=== PATIENT | female | born 1980 | race Two or more races ===

== ENCOUNTER 2024-12-24 08:31 | Emergency (ER) | payer MEDICAID ==
[~2024-12-24] VITALS: Ht 160 cm; Wt 77.0 kg
[2024-12-24 08:44] VITALS: O2SAT 98
[2024-12-24] MEDS: IBUPROFEN 600MG TABLET PO ONE (09:46)
[2024-12-24] MEDS: CYCLOBENZAPRINE 10MG TABLET PO ONE (09:47)
[2024-12-24] MEDS ORDERED: CYCL5TAB3 MT (10:03)
[2024-12-24] MEDS ORDERED: IBUP-2029 MT (10:03)
[2024-12-24 10:10] VITALS: BP 155/98; PULSE 79; RESP 15; TEMP 36.9; O2SAT 98
== END 2024-12-24 10:12 | disposition home or self-care (01) ==
LOC: ER 08:55
DX: M47.812 Spondylosis without myelopathy or radiculopathy, cervical region (principal); Z79.899 Other long term (current) drug therapy
CPT/HCPCS: 72040; 99283